=== PATIENT | male | born 1950 | race Caucasian/White ===

== ENCOUNTER 2025-04-23 07:19 | Outpatient (CLI) | payer MEDICARE, BC, SELFPAY ==
--- OUTSIDE RECORDS SUMMARY | 2025-04-24 16:05 | XMS_ITS | Clinical Summary ---
Author Organization [facility] [employer] [facility] Address [address] [place] [id number] Care Team Providers Care Clarifying Plant Operator Name Role Phone Keerthi Conley MD Primary [...] (11/02/2023): Added automatically from request for surgery [id number] Insomnia 01/18/2016 Dilated cardiomyopathy 12/14/2015 Nonrheumatic tricuspid (valve) insufficiency 07/2016 Obsessive compulsive disorder 12/15/2014 Esophageal motility disorder 10/03/2014 Shoulder tendinosis 07/22/2014 [facility] (current) use of anticoagulants 2013 Personal history [...] IIV3 (Age 65+ Years) Preserv Free 09/26/2017 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,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 Pneumococcal Poly,23-Valent (Pneumovax) 12/29/2014,09/03/1986 Pneumococcal [...] on file Legal Sex Male 6:41 AM DRY CAN TENDER Gender Identity Not on file Sexual Orientation Not on file Occupation Industry Job Start Date Job End Date [employer] Not on file Not on file Not on file Obstetrics History Last Filed Vital Signs Vital Sign Reading Time Taken Comments Blood Pressure 137/86 11/03/2023 7:35 AM DRY CAN TENDER Pulse 71 11/03/2023 7:35 AM DRY CAN TENDER Temperature 36.5 C (97.7 F) 11/03/2023 7:35 AM DRY CAN TENDER Respiratory Rate 18 11/03/2023 7:35 AM DRY CAN TENDER Oxygen Saturation 99% 11/03/2023 7:35 AM DRY CAN TENDER Inhaled Oxygen Concentration - - Weight 83.5 kg (184 lb 1.6 oz) 11/02/2023 6:00 A M DRY CAN TENDER Height 167.6 cm (5' 6) 11/01/2023 8:41 AM DRY CAN TENDER Body Mass Index 29.71 11/01/2023 8:41 AM DRY CAN TENDER Plan of Treatment Health Maintenance Due Date [...] 07/28/2014, 09/03/1986 Medical Devices Implanted Type Area Test Inspection Engineer Device Identifier Shelf Expiration Date Model / Serial / Lot [id number] - [id number] Implanted:Qty: 1 on 12/20/2016 by Arnulfo Betts Jr., MD at [facility] Opthalmology Implants Left: Eye [employer] 08/09/2021 [id number] / [id number] / Description:TECNIS SYMPHONY EXTENDED RANGE OF VISION IOL Symfony Iol Implanted:Qty: 1 on 12/27/2016 by Arnulfo Betts Jr., MD at [facility] Right: Eye [employer] 08/09/2021 [id number] / [id number] / Baseplate Tib Univ Sz 6 Triathlon Keeled Ingrowth Pors Tritan - [id number] Implanted:Qty: 1 on 11/01/2023 by Israel Moore MD at [facility] Left: Knee [employer] 06/17/2028 5536-B-6 00 / / [id number] Insert Tib Sz 6 9mm Knee X3 Condylar Stabilizing Triathlon - [id number] Implanted:Qty: 1 on 11/01/2023 by Israel Moore MD at [facility] Left: Knee [employer] 06/11/2028 5531-G-6 09-E / / [id number] Fem Lt 6 Triathlon Beaded W/Pa - [id number] Implanted:Qty: 1 on 11/01/2023 by Israel Moore MD at [facility] Left: Knee [employer] 12/27/2027 5517-F-6 01 / / [id number] Patella [id number] Triathlon Tritanium Symmetrical Metal Backed - [id number] Implanted:Qty: 1 on 11/01/2023 by Israel Moore MD at [facility] Left: Knee [employer] 05/02/2028 5556-L-3 60 / / [id number] Explanted Type Area Test Inspection Engineer Device Identifier Shelf Expiration Date Model / Serial / Lot Pin Bone Fix [id number] Strl - [id number] Explanted:Qty: 1 on 11/01/2023 by Israel Moore MD at [facility] Left: Knee [employer] 05/26/2025 [id number] / / [id number] Pin Bone Fix [id number] - [id number] Explanted:Qty: 1 on 11/01/2023 by Israel Moore MD at [facility] Left: Knee [employer] 07/20/2028 [id number] / / [id number] Additional Health Concerns Infection Onset Date Last Indicated MRSA Clearance Comment:If >12 months since positive culture, precautions can be discontinued if patient has no MRSA risk factors. 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 exclusions for contact precaution discontinuation (if > 12 months since positive culture): resides in acute/long-term care, receiving hemodialysis, has chronic open wounds/skin damage, has long-term percutaneous indwelling medical devices Exclusions for nares collection (if <12 months since positive culture) include all of the previous exclusions plus patients on antibiotics 7 days prior to collection 05/23/2019 05/23/2019 Insurance MEDICARE PB ONLY MEDICARE PART B HB ONLY MEDICARE PART A HB ONLY [facility] Advance Directives Documents on File Type Date Recorded Patient Associate Product Integrity Engineer Expl anation Healthcare Directive 03/21/2024 024 Healthcare [...] 9:07 AM 12/20/2016 2:10 PM Care Teams Clarifying Plant Operator Relationship Specialty Start Date End Date Keerthi Conley MD [address] [place] [address] PCP - General Internal Medicine 04/29/19
--- OUTSIDE RECORDS SUMMARY | 2025-04-24 16:05 | XMS_ITS | Clinical Summary ---
Author Organization [facility] Address [address] [place] [address] Care Team Providers Care Cashier Tube Room Name Role Phone Needs Pcp, Assignment Primary Care Provider Source Comments You are receiving this document as you are listed as the primary care provider,follow-up provider, or the patient has been referred to you for consultation.This is in compliance with the Medicare and[facility] Incentive Program,which states Providers who transition their patient to another setting of careor provider of care or refers their patient to another provider of care shouldprovide summary care record for each transition of care or referral. [facility] Allergies No known active allergies Medications aspirin [...] age to complete this topic Insurance MEDICARE [facility] MEDICARE SUPPLEMENT Care Teams Cashier Tube Room Relationship Specialty Start Date End [place] [address] PCP - General 01/31/19
== END 2025-04-23 07:20 | disposition home or self-care (01) ==
PROVIDERS: Visit Provider Family Medicine
DX: K92.1 Melena (principal); R42 Dizziness and giddiness
CPT/HCPCS: A0425; A0427

== ENCOUNTER 2025-04-23 08:05 | Inpatient (IN) | payer MEDICARE, BC, SELFPAY ==
[2025-04-23] VITALS (41 sets, daily range): BP systolic 63–150; BP diastolic 34–91; PULSE 85–232; RESP 10–20; TEMP 36.6–37.2; O2SAT 87–100; BMI 23.0
--- OUTSIDE RECORDS SUMMARY | 2025-04-23 08:07 | XMS_ITS | Clinical Summary ---
Author Organization [facility] Address [address] [place] [id number] Care Team Providers Care Putty Tinter Maker Name Role Phone Keerthi Conley MD Primary Care Provide r Allergies No known active allergies Medications ezetimibe (ZETIA) 10 mg tabletIndications:hyper lipidemia Take 10 mg by mouth at bedtime. Indications: excessive fat in the blood 0 08/07/20 13 Active aspirin 81 mg tabletIndications:myoca rdial infarction prevention Take 81 mg by mouth once daily with a meal. Indications: treatment to prevent a heart attack 0 08/07/20 13 Active amoxicillin (AMOXIL) 500 mg tabletIndications:prior to dental procedures Take 2,000 mg by mouth. Indications: prior to dental procedures Active doxepin 100 mg capsuleIndications:anxi ety Take 100 mg by mouth at bedtime. Active losartan (COZAAR) 100 mg tablet Take 100 mg by mouth once daily. 07/15/20 20 Active clonazePAM (KLONOPIN) 1 mg tablet Take 1 mg by mouth at bedtime. Active chlorthalidone (HYGROTON) 25 mg tablet Take 1 Tablet by mouth once daily. 06/07/20 22 Active sertraline (ZOLOFT) 100 mg tablet Take 100 mg by mouth once daily. 12/21/19 23 Active pregabalin (LYRICA) 225 mg capsule Take 225 mg by mouth. 05/28/20 23 Active ondansetron (ZOFRAN ODT) 4 mg disintegrating tabletIndications:Prima ry osteoarthritis of left knee Place 1 Tablet (4 mg) on the tongue every 8 hours if needed for Nausea/Vomiti ng. 20 Tablet 11/02/20 Active sennosides-docusate (SENOKOT S) (8.6-50 mg) tabletIndications:Prima ry osteoarthritis of left knee Take 1-3 Tablets by mouth two times daily. 60 Tablet 11/02/20 Active WalkerIndications:Prima ry osteoarthritis of left knee Walker with front wheels for home use. 1 Each 11/02/20 Active warfarin (Coumadin) 5 mg tabletIndications:Prese nce of prosthetic heart valve Take 1 Tablet (5 mg) by mouth once daily. Sunday 2.5mg, 5mg rest of week 11/03/20 Active levothyroxine (SYNTHROID) 150 mcg tabletIndications:hypot hyroidism Take 1 Tablet (150 mcg) by mouth before breakfast. 11/03/20 Active rosuvastatin (CRESTOR) 10 mg tabletIndications:Famil ial hypercholesterolemia Take 1 Tablet (10 mg) by mouth at bedtime. Take Sunday, Sunday, Sunday. 11/03/20 Active metoprolol tartrate (LOPRESSOR) 25 mg tabletIndications:Hyper tension Take 1 Tablet (25 mg) by mouth two times daily. 11/03/20 Active Active Problems Problem Noted Date Diagnosed Date Hypotension due to drugs 11/02/2023 Primary osteoarthritis of left knee 10/31/2023 Fibromyalgia 02/27/2022 Dilated aortic root 02/03/2021 Atherosclerosis of coronary artery bypass graft(s) without angina pectoris 09/26/2019 After-cataract of left eye with vision obscured 06/03/2019 Personal history of surgery to heart and great vessels, presenting hazards to health 05/20/2019 Essential tremor 03/13/2019 Nevus of choroid 05/07/2018 Moderate episode of recurrent major depressive d isorder 04/25/2018 Overactive bladder 04/21/2018 Mild cognitive impairment 10/26/2017 Lumbar radiculopathy 10/25/2017 Cataract, right eye 12/26/2016 Cataract, left eye 12/19/2016 Tinnitus 04/27/2016 Sinusitis, chronic 03/28/2016 Overview (11/02/2023): Added automatically from request for surgery [id number] Insomnia 01/18/2016 Dilated cardiomyopathy 12/14/2015 Nonrheumatic tricuspid (valve) insufficiency 07/2016 Obsessive compulsive disorder 12/15/2014 Esophageal motility disorder 10/03/2014 Shoulder tendinosis 07/22/2014 senior care (current) use of anticoagulants 2013 Personal history of other malignant neoplasm of skin 10/22/2013 Left hamstring tendonitis at origin 09/18/2013 DDD (degenerative disc disease), lumbar 09/04/20 13 Iliopsoas bursitis 09/04/2013 Acquired absence of other genital organ(s) 05/02 Gastroesophageal reflux disease without esophagi tis 12/29/2009 Familial hypercholesterolemia 07/21/2009 Hypertensive heart disease with heart failure Hypothyroidism 04/14/2009 Excessive attrition of teeth, generalized 2007 High prostate specific antigen (PSA) 04/03/2007 Osteoarthritis of shoulder 01/29/2007 Erectile dysfunction 10/25/2005 Incomplete bladder emptying 10/25/2005 Deviated nasal septum 08/30/2005 Coronary artery disease without angina pectoris 02/17/2004 Presence of prosthetic heart valve 02/17/2004 Immunizations Immunization Administration Dates Next Due Amb Influenza, Inact (High-d ose) (Flu Clinic Only) 08/03/2014 Hepatitis A (Adult) 07/28/2014,03/12/2006,1998 Hepatitis B, Unspecified 07/15/1987,042 02/1987,01/29/1987,1985,11/05/1979 Influenza Virus, Unspecified 09/22/2015, 08/19/2014,08/21/2013,2010,08/05/2010 Influenza, IIV3 (Age >=3 years) 08/19/2012,08/23 Influenza, Inactivated IIV3 (Age 65+ Years) Preserv Free 09/26/2017 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 4 11/02/2023 Financial Resource Strain Answer Date R ecorded Difficulty of Paying Living Expenses 3 11/02/2023 Difficulty of Paying Living Expenses Not on file 11/02/2023 Food Insecurity Answer Date Recorded Do you worry your food will run out before you are able to buy more? 1 11/02/2023 Transportation Needs Answer Date Record ed Does lack of transportation keep you from medica l appointments? 1 11/02/2023 Does lack of transportation keep you from work, meetings or getting things that you need? 1 11/02/2023 Housing Stability Answer Date Recorded What is your housing situation today? 1 11/02/2023 Interpersonal Safety Answer Date Record ed Are you being hit, kicked, p ushed or yelled at (see row info)? No 11/02/2023 Interpersonal Safety Abuse 12 - 18 Not on file 11/02/2023 Interpersonal Safety Ambulatory Vulnerability No t on file 11/02/2023 Utilities Answer Date Recorded Do you have trouble paying f or utilities (for example, heat, electricity, water, phone)? 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 file Not on file Not on file Obstetrics History Last Filed Vital Signs Vital Sign Reading Time Taken Comments Blood Pressure 137/86 11/03/2023 7:35 AM HOOP RIVETER Pulse 71 11/03/2023 7:35 AM HOOP RIVETER Temperature 36.5 C (97.7 F) 11/03/2023 7:35 AM HOOP RIVETER Respiratory Rate 18 11/03/2023 7:35 AM HOOP RIVETER Oxygen Saturation 99% 11/03/2023 7:35 AM HOOP RIVETER Inhaled Oxygen Concentration - - Weight 83.5 kg (184 lb 1.6 oz) 11/02/2023 6:00 A M HOOP RIVETER Height 167.6 cm (5' 6) 11/01/2023 8:41 AM HOOP RIVETER Body Mass Index 29.71 11/01/2023 8:41 AM HOOP RIVETER Plan of Treatment Health Maintenance Due Date Last Done Comments Hepatitis C screening for ag e 18-79 1966 Zoster (shingles) series for age 50+ (2 of 3) 05/14/2007 03/19/2007 Medicare Wellness for age 65+ 2013 Depression screening for age 12+ 12/08/2016 12/08/19 16 BMI (ht and wt on same day) for age 18+ 10/24/2017 10/24/2016, 06/06/2016, 02/03/2016 RSV vaccine for adults or (1 - 1-dose 75+ series) 2023 COVID-19 vaccine series ( season) 2024 07/22/2022, 01/31/2022, 07/22/2021, Additional history exists Tetanus booster 07/28/2024 07/28/2014, 01/04, 03/01/2005 Influenza Vaccine (Season Ended) 2025 09/26/2017, 09/22/2015, 08/19/2014, Additional history exists Hepatitis B series for 19+ Completed 07/15, 02/26/1987, 01/29/1987, Additional history exists Tdap Completed 07/28/2014, 01/23/2011 Pneumococcal series for age 50+ Completed 12/29/2014, 07/28/2014, 09/03/1986 Medical Devices Implanted Type Area Plate Grainer Device Identifier Shelf Expiration Date Model / Serial / Lot [id number] - [id number] Implanted:Qty: 1 on 12/20/2016 by Arnulfo Betts Jr., MD at [facility] Opthalmology Implants Left: Eye [employer] 08/09/2021 [id number] / [id number] / Description:TECNIS SYMPHONY EXTENDED RANGE OF VISION IOL Symfony Iol Implanted:Qty: 1 on 12/27/2016 by Arnulfo Betts Jr., MD at [facility] Right: Eye [employer] 08/09/2021 [id number] / [id number] / Baseplate Tib Univ Sz 6 Triathlon Keeled Ingrowth Pors Tritan - [id number] Implanted:Qty: 1 on 11/01/2023 by Israel Moore MD at [facility] Left: Knee [employer] 06/17/2028 5536-B-6 00 / / [id number] Insert Tib Sz 6 9mm Knee X3 Condylar Stabilizing Triathlon - [id number] Implanted:Qty: 1 on 11/01/2023 by Israel Moore MD at [facility] Left: Knee [employer] 06/11/2028 5531-G-6 09-E / / [id number] Fem Lt 6 Triathlon Beaded W/Pa - [id number] Implanted:Qty: 1 on 11/01/2023 by Israel Moore MD at [facility] Left: Knee [employer] 12/27/2027 5517-F-6 01 / / [id number] Patella [id number] Triathlon Tritanium Symmetrical Metal Backed - [id number] Implanted:Qty: 1 on 11/01/2023 by Israel Moore MD at [facility] Left: Knee [employer] 05/02/2028 5556-L-3 60 / / [id number] Explanted Type Area Plate Grainer Device Identifier Shelf Expiration Date Model / Serial / Lot Pin Bone Fix [id number] Strl - [id number] Explanted:Qty: 1 on 11/01/2023 by Israel Moore MD at [facility] Left: Knee [employer] 05/26/2025 [id number] / / [id number] Pin Bone Fix [id number] - [id number] Explanted:Qty: 1 on 11/01/2023 by Israel Moore MD at [facility] Left: Knee [employer] 07/20/2028 [id number] / / [id number] Additional Health Concerns Infection Onset Date Last Indicated MRSA Clearance Comment:If >12 months since positive culture, precautions can be discontinued if patient has no MRSA risk factors. 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 exclusions for contact precaution discontinuation (if > 12 months since positive culture): resides in acute/detention care, receiving hemodialysis, has chronic open wounds/skin damage, has long-term percutaneous indwelling medical devices Exclusions for nares collection (if <12 months since positive culture) include all of the previous exclusions plus patients on antibiotics 7 days prior to collection 05/23/2019 05/23/2019 Insurance MEDICARE PB ONLY MEDICARE PART B HB ONLY MEDICARE PART A HB ONLY [facility] Advance Directives Documents on File Type Date Recorded Patient Receiving Room Clerk Expl anation Healthcare Directive 03/21/2024 024 Healthcare Directive 03/21/2024 024 Healthcare Directive 03/03/2021 12:00 AM Healthcare Directive 12/22/2016 5:54 PM Ex pired 03/03/2021 * Full Code (Latest Code Status on File) Date Activated Date Inactivated Comments 11/01/2023 8:19 AM 11/03/2023 4:31 PM Question Answer Comments Code Status Discussion: Not Discussed * Full Code Date Activated Date Inactivated Comments 03/03/2021 8:38 AM 03/03/2021 4:12 PM Question Answer Comments Code Status Discussion: Per Existing Order * Full Code Date Activated Date Inactivated Comments 05/01/2019 11:23 AM 05/01/2019 5:42 PM * Full Code Date Activated Date Inactivated Comments 12/27/2016 7:32 AM 12/27/2016 1:59 PM * Full Code Date Activated Date Inactivated Comments 12/20/2016 9:07 AM 12/20/2016 2:10 PM Care Teams Putty Tinter Maker Relationship Specialty Start Date End Date Keerthi Conley MD [address] [place] [address] PCP - General Internal Medicine 04/29/19
--- OUTSIDE RECORDS SUMMARY | 2025-04-23 08:07 | XMS_ITS | Clinical Summary ---
Author Organization [facility] Address [address] [place] [address] Care Team Providers Care Breakfast Manager Name Role Phone Needs Pcp, Assignment Primary Care Provider Source Comments You are receiving this document as you are listed as the primary care provider,follow-up provider, or the patient has been referred to you for consultation.This is in compliance with the Medicare and[facility] EHR Incentive Program,which states Providers who transition their patient to another setting of careor provider of care or refers their patient to another provider of care shouldprovide summary care record for each transition of care or referral. [employer] Allergies No known active allergies Medications aspirin 81 MG tablet Take 81 mg by mouth daily. Active doxepin (SINEQUAN) 100 MG capsule Take 100 mg by mouth every evening. Active atorvastatin (LIPITOR) 80 MG tablet Take 80 mg by mouth daily. Active ezetimibe (ZETIA) 10 MG tablet Take 10 mg by mouth daily. Active warfarin (COUMADIN) 5 MG tablet Take 5 mg by mouth daily. Active propranolol (INDERAL) 40 MG tablet Take 40 mg by mouth three times a day. Active losartan (COZAAR) 25 MG tablet Take 25 mg by mouth daily. Active lamoTRIgine (LAMICTAL) 100 MG tablet Take 100 mg by mouth daily. Active Social History Tobacco Use Types Packs/Day Years Used Date Smoking Tobacco: Never Assessed Sex and Gender Information Value Date Recorded Sex Assigned at Not on file Legal Sex Male 4:29 AM CDT Gender Identity Not on file Sexual Orientation Not on file Last Filed Vital Signs Vital Sign Reading Time Taken Comments Blood Pressure - - Pulse - - Temperature - - Respiratory Rate - - Oxygen Saturation - - Inhaled Oxygen Concentration - - Weight 68 kg (150 lb) 01/31/2019 8:28 AM CDT Height 167.6 cm (5' 6) 01/31/2019 8:28 AM CDT Body Mass Index 24.21 01/31/2019 8:28 AM CDT Plan of Treatment Health Maintenance Due Date Last Done Comments Hep C Screening (Preventive Services) 1950 Medicare Annual Wellness Visit 1950 RSV Vaccine (1 - 1-dose 75+ series) 2023 COVID-19 Vaccine ( - 2023- season) 2024 01/17/2021, 12/20/2020 DTaP/Tdap/Td Vaccine (3 - Tdap) 07/28/2024 07/28/2014, 01/23/2011, 03/01/2005 Influenza Vaccine (Season Ended) 2025 08/08/2019, 08/16/2018, 10/06/2017, Additional history exists HepA Vaccine Aged Out 07/28/2014, 01/04, 03/12/2006, Additional history exists No longer eligible based on patient's age to complete this topic Pneumococcal Vaccine 50+ Yrs Completed , 07/28/2014, 09/03/1986 Zoster/Shingles Vaccine Completed 10/04/20 18, 05/17/2018, 03/15/2018, Additional history exists HepB Vaccine Aged Out No longer eligi ble based on patient's age to complete this topic Hib Vaccine Aged Out No longer eligi ble based on patient's age to complete this topic IPV (Polio) Vaccine Aged Out No longe r eligible based on patient's age to complete this topic MCV4 Vaccine Aged Out No longer eligi ble based on patient's age to complete this topic Meningococcal B Vaccine Aged Out No l onger eligible based on patient's age to complete this topic Insurance MEDICARE [facility] [place] [address] Care Teams Breakfast Manager Relationship Specialty Start Date [place] [address] PCP - General 01/31/19
--- NOTE | 2025-04-23 08:51 | ED.GENADULT ---
HPI - General Adult General Chief complaint: GI Bleed Stated complaint: GI bleeding Time Seen by Provider: 04/23/25 08:29 Source: patient and family Mode of arrival: ambulatory Limitations: no limitations History of Present Illness HPI narrative: 74-year-old male presenting today concerned about GI bleed. Patient states that he was golfing yesterday and felt very dizzy on the golf course. He finished the course and then went home became more week. He states that he had delay on the ground at some point at night. He then had diarrhea shortly before bed it was dark tarry stools. He had multiple episodes of diarrhea throughout the night and today morning which eventually turned into bright red blood. He feels lightheaded. He denies chest pain or shortness of breath. He denies any abdominal pain. Past medical history is significant for mechanical aortic valve replacement and mitral valve pericardial patch repair, coronary artery disease status post CABG, long-term anticoagulation with Coumadin, hyperlipidemia, hypertension, right bundle branch block, history of CVA following surgery in 2001, obstructive sleep apnea, hypothyroidism, essential tremor, depression, probable parkinsons disease- currently being worked up for cognitive decline. Blood pressure medications for help this morning. Patient is currently not taking sertraline or Abilify as part of his neurological evaluation. Related Data Home Medications ?Medication ?Instructions ?Recorded ?Confirmed aripiprazole 10 mg tablet 10 mg PO DAILY 04/23/25 04/23/25 Held on 04/23/25. Instructions: due to upcoming scan aspirin 81 mg tablet,delayed 81 mg PO DAILY 04/23/25 04/23/25 release (Adult Aspirin Regimen) chlorthalidone 25 mg tablet 25 mg PO DAILY 04/23/25 04/23/25 clonazepam 1 mg tablet 1 mg PO HS 04/23/25 04/23/25 doxepin 75 mg capsule 75 mg PO HS 04/23/25 04/23/25 evolocumab 140 mg/mL subcutaneous 140 mg subcut Q2W 04/23/25 04/23/25 pen injector (Jake Freeman) ezetimibe 10 mg tablet 10 mg PO HS 04/23/25 04/23/25 levothyroxine 150 mcg tablet 150 mcg PO DAILY 04/23/25 04/23/25 losartan 100 mg tablet 100 mg PO DAILY 04/23/25 04/23/25 metoprolol tartrate 25 mg tablet 25 mg PO BID 04/23/25 04/23/25 pregabalin 225 mg capsule 225 mg PO BID 04/23/25 04/23/25 sertraline 100 mg tablet 200 mg PO DAILY 04/23/25 04/23/25 Held on 04/23/25. Instructions: due to upcoming scan warfarin 5 mg tablet 5 mg PO DAILY 04/23/25 04/23/25 Review of Systems Status of ROS: Reports: 10 or more systems reviewed and unremarkable except as noted in History and below PFSH PFS Social History Smoking Status: Never smoker Do you use any of these nicotine containing products: None Second hand tobacco smoke exposure: No Non-prescribed substance use: denies use Exam Narrative: Exam Narrative: Well-nourished well-developed patient in no acute distress. Alert and oriented x3. Answers questions appropriately but very slowly, often trails off at the end of the answer and does not finish the sentence. Thoughts are goal oriented and rational. Patient speaks in full sentences without needing to catch his breath. HEENT: Normocephalic atraumatic. Pupils are equally round reactive to light. Extraocular muscles are intact. Conjunctivae are moist without any icterus noted, pale. Moist mucous membranes. Cardiovascular: Heart is regular rate and rhythm S1 and S2 are present without any murmurs. Lungs: Clear to auscultation bilaterally no wheezes rhonchi or rales are appreciated. Abdomen: Soft and nontender nondistended with normal bowel sounds. Extremities: Bilateral lower extremities are without edema. Skin: Well perfused without any obvious rashes. Pale. Const: Vital Signs, click to edit/add: Vital Signs - 24 hr 04/23/25 08:14 04/23/25 08:40 04/23/25 09:40 Temperature 97.8 F Pulse Rate 107 H Pulse Rate [Pulse Oximeter] 99 Respiratory Rate 18 12 Blood Pressure Blood Pressure [Ri ght Upper Arm] 150/82 H Pulse Oximetry 99 96 100 Oxygen Delivery Me thod Room Air Room Air 04/23/25 09:45 04/23/25 09:46 04/23/25 09:47 Temperature Pulse Rate 106 H 103 H 104 H Pulse Rate [Pulse Oximeter] Respiratory Rate 15 11 L 18 Blood Pressure 122/86 Blood Pressure [Ri ght Upper Arm] Pulse Oximetry 98 99 99 Oxygen Delivery Me thod 04/23/25 10:00 04/23/25 10:01 04/23/25 10:15 Temperature Pulse Rate 105 H 104 H 121 H Pulse Rate [Pulse Oximeter] Respiratory Rate 13 16 19 Blood Pressure 113/87 Blood Pressure [Ri ght Upper Arm] Pulse Oximetry 97 99 96 Oxygen Delivery Me thod Room Air 04/23/25 10:16 04/23/25 10:30 04/23/25 10:31 Temperature Pulse Rate 111 H 110 H 110 H Pulse Rate [Pulse Oximeter] Respiratory Rate 16 18 10 L Blood Pressure 116/85 114/84 Blood Pressure [Ri ght Upper Arm] Pulse Oximetry 95 99 99 Oxygen Delivery Me thod 04/23/25 10:45 04/23/25 10:46 04/23/25 11:00 Temperature Pulse Rate 113 H 114 H 115 H Pulse Rate [Pulse Oximeter] Respiratory Rate 14 13 15 Blood Pressure 108/80 Blood Pressure [Ri ght Upper Arm] Pulse Oximetry 98 98 99 Oxygen Delivery Me thod Room Air 04/23/25 11:01 04/23/25 11:01 04/23/25 11:07 Temperature 97.9 F Pulse Rate 114 H 114 H 114 H Pulse Rate [Pulse Oximeter] Respiratory Rate 18 18 18 Blood Pressure 116/77 116/77 109/79 Blood Pressure [Ri ght Upper Arm] Pulse Oximetry 98 98 98 Oxygen Delivery Me thod Room Air 04/23/25 11:11 04/23/25 11:15 04/23/25 11:16 Temperature Pulse Rate 115 H 114 H 116 H Pulse Rate [Pulse Oximeter] Respiratory Rate 12 20 19 Blood Pressure 109/79 106/84 Blood Pressure [Ri ght Upper Arm] Pulse Oximetry 98 98 98 Oxygen Delivery Me thod 04/23/25 11:23 04/23/25 11:23 Temperature 98 F Pulse Rate 117 H 117 H Pulse Rate [Pulse Oximeter] Respiratory Rate 16 18 Blood Pressure 118/78 118/78 Blood Pressure [Ri ght Upper Arm] Pulse Oximetry 98 98 Oxygen Delivery Me thod Room Air Course Course ED Course: IV established and fluids are started. Patient did receive TXA in the ambulance. EKG, read by me, shows sinus tachycardia with a pulse of 105, right bundle branch block and a left anterior fascicular block. CBC shows a hemoglobin of 7.9. Looking through his medical records last hemoglobin on file at [facility] was in January of this year and it was 14. INR is 2.79. Chemistries are unremarkable aside from elevated BUN at 62 consistent with GI bleed. Lactate is 2.5. LFTs are normal. Troponin elevated 0.09. Type and screen ordered along with 2 units of red cells. Discussed patient with Dr. Steen, recommends admission, stabilization and re-evaluation for scope in the morning. Spoke to Neeta Pino who will accept the patient for admission at this time. She recommends holding the vitamin K at this time. Vital Signs Vital signs: Initial Vital Signs Temperature 97.8 F 04/23/25 08:14 Temperature Source Temporal Artery Scan 04/23/25 08:14 Pulse Rate 99 04/23/25 08:14 Respiratory Rate 18 04/23/25 08:14 Blood Pressure 150/82 H 04/23/25 08:14 Blood Pressure Mean 104 04/23/25 08:14 Pulse Oximetry 99 04/23/25 08:14 Oxygen Delivery Method Room Air 04/23/25 08:14 Vital Signs Temperature 97.8 F 04/23/25 08:14 Pulse Rate 99 04/23/25 08:14 Respiratory Rate 18 04/23/25 08:14 Blood Pressure 150/82 H 04/23/25 08:14 Pulse Oximetry 99 04/23/25 08:14 Oxygen Delivery Method Room Air 04/23/25 08:14 Temperature 98 F 04/23/25 11:23 Pulse Rate 117 H 04/23/25 11:23 Respiratory Rate 18 04/23/25 11:23 Blood Pressure 118/78 04/23/25 11:23 Pulse Oximetry 98 04/23/25 11:23 Oxygen Delivery Method Room Air 04/23/25 11:23 Medications Administered Medications: Generic Name Dose Route Start Last Admin Trade Name Freq PRN Reason Stop Dose Admin Sodium Chloride 250 ml 04/23/25 09:09 04/23/25 11:22 0.9 % Sodium Chloride 500 Ml IV 04/24/25 23:59 250 ml ONCE PRN Administration Discontinued Medications Generic Name Dose Route Start Last Admin Trade Name Freq PRN Reason Stop Dose Admin Sodium Chloride 1,000 mls @ 1,000 mls/hr 04/23/25 08:45 04/23/25 09:04 0.9 % Sodium Chloride 1000 Ml IV 04/23/25 09:44 1,000 mls/hr .Q1H RUBY Administration Medical Decision Making MDM Narrative Medical decision making narrative: 74-year-old male acute GI bleed. Patient will be admitted for further management. Lab Data Lab results reviewed: Yes I reviewed the patient's lab results Labs: Lab Results 04/23/25 04/23/25 Range/Units 08:30 08:41 WBC 11.11 H (4.50-11.00) K/uL RBC 2.54 L (4.30-5.90) m/uL Hgb 7.9 L* (13.5-17.5) gm/dL Hct 22.9 L (37.0-53.0) % MCV 90 (80-100) fL MCH 31 (26-34) pg MCHC 35 (32-36) gm/dL RDW Coeff of Cindy 15.4 (11.5-15.5) % Plt Count 251 (140-440) K/uL Neut % (Auto) 81.7 H (42.0-72.0) % Lymph % (Auto) 10.5 L (20-44) % [place] % (Auto) 6.7 (0.0-11.0) % Eos % (Auto) 0.1 (0.0-7.0) % Baso % (Auto) 0.3 (0.0-3.0) % Neut # (Auto) 9.10 H (1.7-7.0) K/uL Lymph # (Auto) 1.20 (0.90-2.90) K/uL [place] # (Auto) 0.70 (0.00-0.90) K/UL Eos # (Auto) 0.00 (0.00-0.50) K/uL Baso # (Auto) 0.00 (0.00-0.30) K/uL Abs Immat Gran (auto) 0.10 (0.00-0.30) K/uL Imm/Tot Granulo (auto) 0.7 % INR 2.79 H (0.91-1.10) Sodium 138 (135-149) mmol/L Potassium 3.8 (3.6-5.1) mmol/L Chloride 106 (96-114) mmol/L Carbon Dioxide 26 (20-32) mmol/L Anion Gap 6 L (7-15) mEq/L BUN 62 H (7-30) mg/dL Creatinine 0.9 (0.5-1.5) mg/dL Estimated Creat Clear 66.53 Estimated GFR 89 ml/min Glucose 139 H (60-115) mg/dL Lactate 2.5 H (0.5-1.9) mmol/L Calcium 8.9 (8.4-10.6) mg/dL Total Bilirubin 0.2 (0.1-1.5) mg/dL Direct Bilirubin 0.0 (0.0-0.5) mg/dL AST 29 (12-35) U/L ALT 21 (4-50) U/L Alkaline Phosphatase 71 (40-150) U/L Troponin I 0.09 H* (0.01-0.04) ng/mL Total Protein 5.4 L (6.0-8.3) g/dL Albumin 3.3 (3.3-5.0) g/dL Blood Type O Negative Antibody Screen NEGATIVE Crossmatch (AHG) See Detail ECG Data Attestation: I personally reviewed and interpreted this ECG as follows: Discharge Plan Discharge Clinical Impression: Bright red blood per rectum, GI (gastrointestinal bleed), Chronic anticoagulation Patient Disposition: Admitted As Observation Condition: Stable
[2025-04-23 08:56] LABS: Lactate* 2.5 mmol/L (0.5-1.9)
[2025-04-23 09:00] LABS: Basophils Percent Auto 0.3 % (0.0-3.0); Eosinophils Percent Auto 0.1 % (0.0-7.0); Hematocrit 22.9 % (37.0-53.0); Immature Granulocytes Pct Auto 0.7 %; Lymphocytes Percent Auto 10.5 % (20-44); Mean Corpuscular HGB Conc 35 gm/dL (32-36); Mean Corpuscular Hemoglobin 31 pg (26-34); Mean Corpuscular Volume 90 fL (80-100); Monocytes Percent Auto 6.7 % (0.0-11.0); Neutrophils Percent Auto 81.7 % (42.0-72.0); Platelet Count* 251 K/uL (140-440); RDW Coefficient of Variation % 15.4 % (11.5-15.5); Red Blood Count 2.54 m/uL (4.30-5.90); White Blood Count* 11.11 K/uL (4.50-11.00)
[2025-04-23] MEDS: 0.9 % SODIUM CHLORIDE 1000 ml 1,000 ML IV (09:04)
[2025-04-23 09:08] LABS: Hemoglobin* 7.9 gm/dL (13.5-17.5)
[2025-04-23 09:12] LABS: Albumin* 3.3 g/dL (3.3-5.0); Chloride* 106 mmol/L (96-114); Potassium* 3.8 mmol/L (3.6-5.1); Sodium* 138 mmol/L (135-149)
[2025-04-23 09:15] LABS: Alanine Aminotransferase* 21 U/L (4-50); Alkaline Phosphatase* 71 U/L (40-150); Anion Gap 6 mEq/L (7-15); Aspartate Amino Transferase* 29 U/L (12-35); Bilirubin Total* 0.2 mg/dL (0.1-1.5); Blood Urea Nitrogen* 62 mg/dL (7-30); Calcium* 8.9 mg/dL (8.4-10.6); Carbon Dioxide* 26 mmol/L (20-32); Creatinine* 0.9 mg/dL (0.5-1.5); Est. Creatinine Clearance* 66.53; Estimated Glomerular Filt Rate 89 ml/min; Glucose* 139 mg/dL (60-115); Total Protein* 5.4 g/dL (6.0-8.3)
[2025-04-23 09:16] LABS: INR 2.79 (0.91-1.10); Prothrombin Time 30.7 Seconds
[2025-04-23 09:32] LABS: Troponin I* 0.09 ng/mL (0.01-0.04)
[2025-04-23] MEDS: 0.9 % SODIUM CHLORIDE 500 ML 250 ML IV (11:22)
[2025-04-23 12:34] LABS: Slide Review Reflex No
[2025-04-23 13:20] LABS: Lactate Sepsis w/Reflex* 2.8 mmol/L (0.5-1.9)
[2025-04-23 13:25] LABS: Basophils Percent Auto 0.2 % (0.0-3.0); Eosinophils Percent Auto 0.1 % (0.0-7.0); Hemoglobin* 8.2 gm/dL (13.5-17.5); Immature Granulocytes Pct Auto 0.7 %; Lymphocytes Percent Auto 11.3 % (20-44); Mean Corpuscular HGB Conc 34 gm/dL (32-36); Mean Corpuscular Hemoglobin 31 pg (26-34); Mean Corpuscular Volume 89 fL (80-100); Monocytes Percent Auto 7.3 % (0.0-11.0); Neutrophils Percent Auto 80.4 % (42.0-72.0); Platelet Count* 233 K/uL (140-440); RDW Coefficient of Variation % 15.1 % (11.5-15.5); Red Blood Count 2.69 m/uL (4.30-5.90); Slide Review Reflex No; White Blood Count* 11.48 K/uL (4.50-11.00)
[2025-04-23 13:44] LABS: INR 2.64 (0.91-1.10); Prothrombin Time 29.4 Seconds
[2025-04-23 14:14] LABS: Alanine Aminotransferase* 21 U/L (4-50); Albumin* 3.2 g/dL (3.3-5.0); Anion Gap 4 mEq/L (7-15); Aspartate Amino Transferase* 30 U/L (12-35); Bilirubin Total* 0.3 mg/dL (0.1-1.5); Blood Urea Nitrogen* 59 mg/dL (7-30); Calcium* 8.7 mg/dL (8.4-10.6); Carbon Dioxide* 26 mmol/L (20-32); Chloride* 108 mmol/L (96-114); Creatinine* 0.9 mg/dL (0.5-1.5); Est. Creatinine Clearance* 66.53; Estimated Glomerular Filt Rate 89 ml/min; Glucose* 141 mg/dL (60-115); Potassium* 4.3 mmol/L (3.6-5.1); Sodium* 138 mmol/L (135-149); Total Protein* 5.3 g/dL (6.0-8.3)
[2025-04-23 14:15] LABS: Alkaline Phosphatase* 67 U/L (40-150)
[2025-04-23 14:16] LABS: Troponin I* 0.12 ng/mL (0.01-0.04)
--- NOTE | 2025-04-23 14:21 | PM.IMHP1 ---
Assessment and Plan Assessment and plan (1) Wide-complex tachycardia: Problem comment: 7 minute run of wide complex tachycardia Symptomatic - diaphoretic, generalized weakness. Without complaint of chest pain, tightness, dyspnea Resolved without intervention, spontaneously returning to sinus tachycardia, EKG similar to previous. Symptoms resolved Repeat lab stable. Lactate mildly elevated Plan to transfer- [facility] has been contacted, [facility] to review, awaiting acceptance Status: Acute (2) GI (gastrointestinal bleed): Problem comment: 8 bloody stools since 6:30 p.m. 04/22 Bright red blood On anticoagulation - holding Hemoglobin 7.9 ->8.2 Receiving 2 units packed red blood cells. Repeat hemoglobin after 2nd unit. Reports previous blood transfusions without adverse reactions ED provider discussed with General surgery, initial plan was for reassessment for scope tomorrow. Given code event requiring CCU level care, patient will be transferred. Defer to outside facility Status: Acute (3) Chronic anticoagulation: Problem comment: Prosthetic valve INR 2.64 Holding Coumadin Status: Acute (4) H/O prosthetic heart valve: Problem comment: 2003 Chronic anticoagulation - holding Status: Acute (5) Hypertension: Problem comment: Patient held his metoprolol and losartan last night and this morning Hold home meds Status: Acute (6) Hypotension: Problem comment: SBP < 65 during wide complex tachycardia. Normalized in sinus tachycardia Continue IVF Hold home meds Status: Acute (7) Elevated troponin: Problem comment: Troponin 0.09 -> 0.12 following episode of wide complex tachycardia, EKG unchanged, suspected to be ischemic [facility] to review Status: Acute Plan Acute GI bleed. Episode of wide complex tachycardia, converted to sinus tachycardia without intervention. Awaiting transfer for ICU level care. Stable Acuity is characterized as high and reflected in: White complex tachycardia, symptomatic, acute GI bleed with acute blood loss anemia This patient will require hospital services as outlined in the assessment and plan in order to stabilize and be safely discharged to a lower level of care. Because of the risk and acuity as described above, this patient cannot be managed at a lower level of care. Total Time Spent Total Time Spent: Today I spent 120 minutes seeing the patient, reviewing Expanse and EPIC notes/diagnostics, discussing the care plan with our care time that includes social work, PT/OT, pharmacy, RT, intermediate and documenting my impressions and plan in the medical record. Hospitalist- H&P: [facility] History of Present Illness Date Seen: 04/23/25 Chief complaint: GI bleeding Narrative: Gallo Ambrocio is a 74 year old male past medical history significant for hypertension, heart failure, CAD, dilated aortic root, dilated cardiomyopathy, hypothyroidism, GERD, tremor, MDD, cognitive impairment is admitted to the medical floor from the ED with active GI bleed. Shortly after arrival to the floor, patient is noted to have a heart rate >230. SBP 63. Symptomatic with generalized weakness, diaphoresis. Denied chest pain, pressure, or shortness of breath. Is not feeling nauseous. Has not vomited. Heart rate noted >230. On monitor, appears to be wide complex V-tach. Currently receiving 1 unit PRBC. Afebrile. Crash cart at bedside. Plan for adenosine. While preparing, patient converts back to sinus tach, just over 100. Acute symptoms began to resolve. reports he has had episodes of similar tachycardia in the past postoperatively. and son are at bedside. Reports onset of dizziness yesterday afternoon while golfing. Assumed he was dehydrated. At approximately 1830 last night had his 1st bloody stool. Has had a total of 8 bloody stool since that time. Initially dark and tarry, now bright red. Denies significant abdominal pain or cramping. Has not been nauseous or vomiting. Denies hematemesis or hematuria. ED provider had discussed with General surgery. Plan was to bring to floor, stabilize, and re-evaluate in the morning for scope. Given event of 7 minute run of wide complex tachycardia, patient is admitted to CCU, initiation for transfer has been started. Primary care is [facility]. Review of Systems Narrative: REVIEW OF SYSTEMS: Complete review of systems performed and negative unless otherwise stated in HPI or below. Medical Decision Making Medical Decision Making Code Status: Full code Has patient completed a Health Care Directive: Yes During This Stay, Who Would You Like To Make Decisions For You In The Event You Are Unable To Make Them For Yourself?: [facility] Medical History Hypertension ?I10 - Essential (primary) hypertension (ICD-10) Cognitive impairment ?R41.89 - Other symptoms and signs involving cognitive functions and awareness (ICD-10) Hypertensive heart disease with heart failure ?I11.0 - Hypertensive heart disease with heart failure (ICD-10) Dilated cardiomyopathy ?I42.0 - Dilated cardiomyopathy (ICD-10) Surgical History H/O prosthetic heart valve ?Z95.2 - Presence of prosthetic heart valve (ICD-10) Social History Smoking Status: Never smoker Do you use any of these nicotine containing products: None Second hand tobacco smoke exposure: No Non-prescribed substance use: denies use Meds Home Medications and Allergies Home Medications ?Medication ?Instructions ?Recorded ?Confirmed ?Type aripiprazole 10 mg tablet 10 mg PO DAILY 04/23/25 04/23/25 History Held on 04/23/25. Instructions: due to upcoming scan aspirin 81 mg tablet,delayed 81 mg PO DAILY 04/23/25 04/23/25 History release (Adult Aspirin Regimen) chlorthalidone 25 mg tablet 25 mg PO DAILY 04/23/25 04/23/25 History clonazepam 1 mg tablet 1 mg PO HS 04/23/25 04/23/25 History doxepin 75 mg capsule 75 mg PO HS 04/23/25 04/23/25 History evolocumab 140 mg/mL subcutaneous 140 mg subcut Q2W 04/23/25 04/23/25 History pen injector (Jake Freeman) ezetimibe 10 mg tablet 10 mg PO HS 04/23/25 04/23/25 History levothyroxine 150 mcg tablet 150 mcg PO DAILY 04/23/25 04/23/25 History losartan 100 mg tablet 100 mg PO DAILY 04/23/25 04/23/25 History metoprolol tartrate 25 mg tablet 25 mg PO BID 04/23/25 04/23/25 History pregabalin 225 mg capsule 225 mg PO BID 04/23/25 04/23/25 History sertraline 100 mg tablet 200 mg PO DAILY 04/23/25 04/23/25 History Held on 04/23/25. Instructions: due to upcoming scan warfarin 5 mg tablet 5 mg PO DAILY 04/23/25 04/23/25 History Allergies Allergy/AdvReac Type Severity Reaction Status Date / Time No Known Drug Allergies Allergy Verified 04/23/25 14:15 Exam Narrative: Exam Narrative: PHYSICAL EXAM General: Pale, diaphoretic HEENT: Normocephalic, atraumatic Cardiovascular: Tachycardic. No pitting edema Pulmonary: CTA bilaterally without rhonchi, rales, expiratory wheezes. No dyspnea on room air Abdominal: Soft, nondistended, NTTP Neurological: Alert, answering questions appropriately, cranial nerves intact, no focal findings Extremities: No gross joint deformity or swelling. AROMI. Neurovascularly intact Skin: Warm, dry. Const: Vital Signs, click to edit/add: Vital Signs - 24 hr 04/23/25 08:14 04/23/25 08:40 04/23/25 09:40 Temperature 97.8 F Pulse Rate 107 H Pulse Rate [Pulse Oximeter] 99 Respiratory Rate 18 12 Blood Pressure Blood Pressure [Ri ght Upper Arm] 150/82 H Pulse Oximetry 99 96 100 Oxygen Delivery Me thod Room Air Room Air Oxygen Flow Rate 04/23/25 09:45 04/23/25 09:46 04/23/25 09:47 Temperature Pulse Rate 106 H 103 H 104 H Pulse Rate [Pulse Oximeter] Respiratory Rate 15 11 L 18 Blood Pressure 122/86 Blood Pressure [Ri ght Upper Arm] Pulse Oximetry 98 99 99 Oxygen Delivery Me thod Oxygen Flow Rate 04/23/25 10:00 04/23/25 10:01 04/23/25 10:15 Temperature Pulse Rate 105 H 104 H 121 H Pulse Rate [Pulse Oximeter] Respiratory Rate 13 16 19 Blood Pressure 113/87 Blood Pressure [Ri ght Upper Arm] Pulse Oximetry 97 99 96 Oxygen Delivery Me thod Room Air Oxygen Flow Rate 04/23/25 10:16 04/23/25 10:30 04/23/25 10:31 Temperature Pulse Rate 111 H 110 H 110 H Pulse Rate [Pulse Oximeter] Respiratory Rate 16 18 10 L Blood Pressure 116/85 114/84 Blood Pressure [Ri ght Upper Arm] Pulse Oximetry 95 99 99 Oxygen Delivery Me thod Oxygen Flow Rate 04/23/25 10:45 04/23/25 10:46 04/23/25 11:00 Temperature Pulse Rate 113 H 114 H 115 H Pulse Rate [Pulse Oximeter] Respiratory Rate 14 13 15 Blood Pressure 108/80 Blood Pressure [Ri ght Upper Arm] Pulse Oximetry 98 98 99 Oxygen Delivery Me thod Room Air Oxygen Flow Rate 04/23/25 11:01 04/23/25 11:01 04/23/25 11:07 Temperature 97.9 F Pulse Rate 114 H 114 H 114 H Pulse Rate [Pulse Oximeter] Respiratory Rate 18 18 18 Blood Pressure 116/77 116/77 109/79 Blood Pressure [Ri ght Upper Arm] Pulse Oximetry 98 98 98 Oxygen Delivery Me thod Room Air Oxygen Flow Rate 04/23/25 11:11 04/23/25 11:15 04/23/25 11:16 Temperature Pulse Rate 115 H 114 H 116 H Pulse Rate [Pulse Oximeter] Respiratory Rate 12 20 19 Blood Pressure 109/79 106/84 Blood Pressure [Ri ght Upper Arm] Pulse Oximetry 98 98 98 Oxygen Delivery Me thod Oxygen Flow Rate 04/23/25 11:23 04/23/25 11:23 04/23/25 14:15 Temperature 98 F 98.9 F Pulse Rate 117 H 117 H 111 H Pulse Rate [Pulse Oximeter] Respiratory Rate 16 18 16 Blood Pressure 118/78 118/78 129/87 Blood Pressure [Ri ght Upper Arm] Pulse Oximetry 98 98 98 Oxygen Delivery Me thod Room Air Nasal Cannula Oxygen Flow Rate 1 Hospitalist - H&P: Result Labs Labs: Short CBC 04/23/25 04/23/25 04/23/25 Range/Units 08:30 13:06 13:06 WBC 11.11 H 11.48 H Cancelled (4.50-11.00) K/uL Hgb 7.9 L* 8.2 L (13.5-17.5) gm/dL Hct 22.9 L (37.0-53.0) % Plt Count 251 (140-440) K/uL 04/23/25 04/23/25 04/23/25 Range/Units 13:06 13:06 13:06 WBC (4.50-11.00) K/uL Hgb Cancelled (13.5-17.5) gm/dL Hct 24.0 L Cancelled (37.0-53.0) % Plt Count 233 Cancelled (140-440) K/uL BMP 04/23/25 04/23/25 04/23/25 08:30 13:06 13:06 Sodium 138 138 Cancelled Potassium 3.8 4.3 Chloride 106 Carbon Dioxide 26 BUN 62 H Creatinine 0.9 Glucose 139 H Calcium 8.9 04/23/25 04/23/25 04/23/25 13:06 13:06 13:06 Sodium Potassium Cancelled Chloride 108 Cancelled Carbon Dioxide 26 Cancelled BUN 59 H Creatinine Glucose Calcium 04/23/25 04/23/25 04/23/25 13:06 13:06 13:06 Sodium Potassium Chloride Carbon Dioxide BUN Cancelled Creatinine 0.9 Cancelled Glucose 141 H Cancelled Calcium 8.7 04/23/25 13:06 Sodium Potassium Chloride Carbon Dioxide BUN Creatinine Glucose Calcium Cancelled Cardiac Enzymes 04/23/25 04/23/25 04/23/25 Range/Units 08:30 13:06 13:06 Troponin I 0.09 H* 0.12 H* Cancelled (0.01-0.04) ng/mL Liver Function 04/23/25 04/23/25 04/23/25 Range/Units 08:30 13:06 13:06 Total Bilirubin 0.2 0.3 Cancelled (0.1-1.5) mg/dL Direct Bilirubin 0.0 (0.0-0.5) mg/dL AST 29 30 (12-35) U/L ALT 21 (4-50) U/L Alkaline Phosphatase 71 (40-150) U/L Albumin 3.3 (3.3-5.0) g/dL 04/23/25 04/23/25 04/23/25 Range/Units 13:06 13:06 13:06 Total Bilirubin (0.1-1.5) mg/dL Direct Bilirubin (0.0-0.5) mg/dL AST Cancelled (12-35) U/L ALT 21 Cancelled (4-50) U/L Alkaline Phosphatase 67 Cancelled (40-150) U/L Albumin 3.2 L (3.3-5.0) g/dL 04/23/25 Range/Units 13:06 Total Bilirubin (0.1-1.5) mg/dL Direct Bilirubin (0.0-0.5) mg/dL AST (12-35) U/L ALT (4-50) U/L Alkaline Phosphatase (40-150) U/L Albumin Cancelled (3.3-5.0) g/dL ECG Attestation: I personally reviewed and interpreted this ECG as follows: ECG interpretation date: 04/23/25 Interpretation: Sinus tachycardia, RBBB, bifascicular block
[2025-04-23 15:21] LABS: Lactate Sepsis 2 Hour 2.7 mmol/L (0.5-1.9)
--- NOTE | 2025-04-23 16:20 | PM.DS1 ---
DS: Providers Provider Date Seen: 04/23/25 Date of admission: 04/23/25 14:41 Primary care physician: Not a Local Provider Admitting Clinician: Lizeth Steen MD Attending Physician on discharge: Neeta Armijo [facility], [facility] [place] [facility] Date of Discharge: 04/23/25 DS: Diagnosis Discharge Diagnosis (1) Wide-complex tachycardia: Status: Acute Problem details: 7 minute run of wide complex tachycardia Symptomatic - diaphoretic, generalized weakness. Without complaint of chest pain, tightness, dyspnea Resolved without intervention, spontaneously returning to sinus tachycardia, EKG similar to previous. Symptoms resolved Repeat lab stable. Lactate mildly elevated Plan to transfer- [facility] has been contacted, [facility] to review, awaiting acceptance Acuity is characterized as high and reflected in: H/o prosthetic valve, chronic anticoagulation, blood loss anemia, rapid response for wide complex tachycardia This patient will require hospital services as outlined in the assessment and plan in order to stabilize and be safely discharged to a lower level of care. Because of the risk and acuity as described above, this patient cannot be managed at a lower level of care. (2) GI (gastrointestinal bleed): Status: Acute Problem details: 8 bloody stools since 6:30 p.m. 04/22 Bright red blood On anticoagulation - holding Hemoglobin 7.9 ->8.2 Receiving 2 units packed red blood cells. Repeat hemoglobin after 2nd unit. Reports previous blood transfusions without adverse reactions ED provider discussed with General surgery, initial plan was for reassessment for scope tomorrow. Given code event requiring CCU level care, patient will be transferred. 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 Normalized in sinus tachycardia Continue IVF Hold home meds (7) Elevated troponin: Status: Acute Problem details: Troponin 0.09 -> 0.12 following episode of wide complex tachycardia, EKG unchanged, suspected to be ischemic [facility] to review DS: Summary Hospital Course Hospital Course: Course of care and details as noted above. 74 yom significant cardiac history, on anticoagulation, with significant GI bleed. Rapid response called for tachycardia and hypotension in setting of volume loss. Transferred to [facility] for further management. Remainder of chronic medical comorbidities were monitored and managed with home medications. Status at Discharge Overall status at discharge: patient is not back to baseline Time Spent with Patient Time attestation: Total time spent providing and/or coordinating discharge services: Time spent: Greater than 30 minutes Exam Narrative: Exam Narrative: PHYSICAL EXAM General: Currently NAD, stable Cardiovascular: Mildly tachycardic Pulmonary: No dyspnea Neurological: Alert, answering questions appropriately Skin: Warm, dry. Const: Vital Signs, click to edit/add: Vital Signs - 24 hr 04/23/25 08:14 04/23/25 08:40 04/23/25 09:40 Temperature 97.8 F Pulse Rate 107 H Pulse Rate [Pulse Oximeter] 99 Pulse Rate [Right Pulse Oximeter] Respiratory Rate 18 12 Blood Pressure Blood Pressure [Ri ght Arm] Blood Pressure [Ri ght Upper Arm] 150/82 H Pulse Oximetry 99 96 100 Oxygen Delivery Me thod Room Air Room Air Oxygen Flow Rate 04/23/25 09:45 04/23/25 09:46 04/23/25 09:47 Temperature Pulse Rate 106 H 103 H 104 H Pulse Rate [Pulse Oximeter] Pulse Rate [Right Pulse Oximeter] Respiratory Rate 15 11 L 18 Blood Pressure 122/86 Blood Pressure [Ri ght Arm] Blood Pressure [Ri ght Upper Arm] Pulse Oximetry 98 99 99 Oxygen Delivery Me thod Oxygen Flow Rate 04/23/25 10:00 04/23/25 10:01 04/23/25 10:15 Temperature Pulse Rate 105 H 104 H 121 H Pulse Rate [Pulse Oximeter] Pulse Rate [Right Pulse Oximeter] Respiratory Rate 13 16 19 Blood Pressure 113/87 Blood Pressure [Ri ght Arm] Blood Pressure [Ri ght Upper Arm] Pulse Oximetry 97 99 96 Oxygen Delivery Me thod Room Air Oxygen Flow Rate 04/23/25 10:16 04/23/25 10:30 04/23/25 10:31 Temperature Pulse Rate 111 H 110 H 110 H Pulse Rate [Pulse Oximeter] Pulse Rate [Right Pulse Oximeter] Respiratory Rate 16 18 10 L Blood Pressure 116/85 114/84 Blood Pressure [Ri ght Arm] Blood Pressure [Ri ght Upper Arm] Pulse Oximetry 95 99 99 Oxygen Delivery Me thod Oxygen Flow Rate 04/23/25 10:45 04/23/25 10:46 04/23/25 11:00 Temperature Pulse Rate 113 H 114 H 115 H Pulse Rate [Pulse Oximeter] Pulse Rate [Right Pulse Oximeter] Respiratory Rate 14 13 15 Blood Pressure 108/80 Blood Pressure [Ri ght Arm] Blood Pressure [Ri ght Upper Arm] Pulse Oximetry 98 98 99 Oxygen Delivery Me thod Room Air Oxygen Flow Rate 04/23/25 11:01 04/23/25 11:01 04/23/25 11:07 Temperature 97.9 F Pulse Rate 114 H 114 H 114 H Pulse Rate [Pulse Oximeter] Pulse Rate [Right Pulse Oximeter] Respiratory Rate 18 18 18 Blood Pressure 116/77 116/77 109/79 Blood Pressure [Ri ght Arm] Blood Pressure [Ri ght Upper Arm] Pulse Oximetry 98 98 98 Oxygen Delivery Me thod Room Air Oxygen Flow Rate 04/23/25 11:11 04/23/25 11:15 04/23/25 11:16 Temperature Pulse Rate 115 H 114 H 116 H Pulse Rate [Pulse Oximeter] Pulse Rate [Right Pulse Oximeter] Respiratory Rate 12 20 19 Blood Pressure 109/79 106/84 Blood Pressure [Ri ght Arm] Blood Pressure [Ri ght Upper Arm] Pulse Oximetry 98 98 98 Oxygen Delivery Me thod Oxygen Flow Rate 04/23/25 11:23 04/23/25 11:23 04/23/25 11:55 Temperature 98 F 98.5 F Pulse Rate 117 H 117 H 111 H Pulse Rate [Pulse Oximeter] Pulse Rate [Right Pulse Oximeter] Respiratory Rate 16 18 18 Blood Pressure 118/78 118/78 122/87 Blood Pressure [Ri ght Arm] Blood Pressure [Ri ght Upper Arm] Pulse Oximetry 98 98 98 Oxygen Delivery Me thod Room Air Room Air Oxygen Flow Rate 04/23/25 12:06 04/23/25 12:06 04/23/25 12:28 Temperature 98.5 F Pulse Rate 119 H Pulse Rate [Pulse Oximeter] Pulse Rate [Right Pulse Oximeter] 113 H Respiratory Rate 18 Blood Pressure 111/85 Blood Pressure [Ri ght Arm] 122/87 Blood Pressure [Ri ght Upper Arm] Pulse Oximetry 98 98 87 L Oxygen Delivery Me thod Room Air Room Air Room Air Oxygen Flow Rate 04/23/25 12:44 04/23/25 12:45 04/23/25 12:53 Temperature Pulse Rate 227 H 231 H Pulse Rate [Pulse Oximeter] Pulse Rate [Right Pulse Oximeter] Respiratory Rate Blood Pressure 63/34 L 106/73 101/78 Blood Pressure [Ri ght Arm] Blood Pressure [Ri ght Upper Arm] Pulse Oximetry 99 98 Oxygen Delivery Me thod Oxygen Flow Rate 04/23/25 12:58 04/23/25 13:00 04/23/25 13:03 Temperature Pulse Rate 112 H Pulse Rate [Pulse Oximeter] Pulse Rate [Right Pulse Oximeter] Respiratory Rate Blood Pressure 106/73 122/83 108/76 Blood Pressure [Ri ght Arm] Blood Pressure [Ri ght Upper Arm] Pulse Oximetry 98 Oxygen Delivery Me thod Nasal Cannula Oxygen Flow Rate 1 04/23/25 13:15 04/23/25 14:15 Temperature 98.9 F Pulse Rate 107 H 111 H Pulse Rate [Pulse Oximeter] Pulse Rate [Right Pulse Oximeter] Respiratory Rate 16 Blood Pressure 125/84 129/87 Blood Pressure [Ri ght Arm] Blood Pressure [Ri ght Upper Arm] Pulse Oximetry 100 98 Oxygen Delivery Me thod Nasal Cannula Oxygen Flow Rate 1 DS: Data Data Completed and Pending Labs on day of discharge: Labs from last 24 hours 04/23/25 04/23/25 04/23/25 15:06 13:06 13:06 WBC Corrected WBC RBC Hgb Hct MCV MCH MCHC RDW Coeff of Cindy Plt Count Neut % (Auto) Lymph % (Auto) [place] % (Auto) Eos % (Auto) Baso % (Auto) Neut # (Auto) Lymph # (Auto) [place] # (Auto) Eos # (Auto) Baso # (Auto) Abs Immat Gran (auto) Imm/Tot Granulo (auto) INR Sodium Potassium Chloride Carbon Dioxide Anion Gap BUN Creatinine Estimated Creat Clear Estimated GFR Glucose Lactate 2.7 H Calcium Total Bilirubin Direct Bilirubin AST ALT Alkaline Phosphatase Troponin I Total Protein Cancelled Albumin Cancelled 3.2 L Stool Occult Blood Stl C. diff Tox B Gene Stl C. diff 027-NAP1-BI POC Troponin I Blood Type Antibody Screen Crossmatch ([facility]) 04/23/25 04/23/25 04/23/25 13:06 13:06 13:06 WBC Corrected WBC RBC Hgb Hct MCV MCH MCHC RDW Coeff of Cindy Plt Count Neut % (Auto) Lymph % (Auto) [place] % (Auto) Eos % (Auto) Baso % (Auto) Neut # (Auto) Lymph # (Auto) [place] # (Auto) Eos # (Auto) Baso # (Auto) Abs Immat Gran (auto) Imm/Tot Granulo (auto) INR Sodium Potassium Chloride Carbon Dioxide Anion Gap BUN Creatinine Estimated Creat Clear Estimated GFR Glucose Lactate Calcium Total Bilirubin Direct Bilirubin AST ALT Cancelled Alkaline Phosphatase Cancelled 67 Troponin I Cancelled 0.12 H* Total Protein 5.3 L Albumin Stool Occult Blood Stl C. diff Tox B Gene Stl C. diff 027-NAP1-BI POC Troponin I Blood Type Antibody Screen Crossmatch ([facility]) 04/23/25 04/23/25 04/23/25 13:06 13:06 13:06 WBC Corrected WBC RBC Hgb Hct MCV MCH MCHC RDW Coeff of Cindy Plt Count Neut % (Auto) Lymph % (Auto) [place] % (Auto) Eos % (Auto) Baso % (Auto) Neut # (Auto) Lymph # (Auto) [place] # (Auto) Eos # (Auto) Baso # (Auto) Abs Immat Gran (auto) Imm/Tot Granulo (auto) INR Sodium Potassium Chloride Carbon Dioxide Anion Gap BUN Creatinine Estimated Creat Clear Estimated GFR Glucose Lactate Calcium Cancelled Total Bilirubin Cancelled 0.3 Direct Bilirubin AST Cancelled 30 ALT 21 Alkaline Phosphatase Troponin I Total Protein Albumin Stool Occult Blood Stl C. diff Tox B Gene Stl C. diff 027-NAP1-BI POC Troponin I Blood Type Antibody Screen Crossmatch ([facility]) 04/23/25 04/23/25 04/23/25 13:06 13:06 13:06 WBC Corrected WBC RBC Hgb Hct MCV MCH MCHC RDW Coeff of Cindy Plt Count Neut % (Auto) Lymph % (Auto) [place] % (Auto) Eos % (Auto) Baso % (Auto) Neut # (Auto) Lymph # (Auto) [place] # (Auto) Eos # (Auto) Baso # (Auto) Abs Immat Gran (auto) Imm/Tot Granulo (auto) INR Sodium Potassium Chloride Carbon Dioxide Anion Gap BUN Creatinine Estimated Creat Clear Estimated GFR Cancelled Glucose Cancelled 141 H Lactate Cancelled 2.8 H Calcium 8.7 Total Bilirubin Direct Bilirubin AST ALT Alkaline Phosphatase Troponin I Total Protein Albumin Stool Occult Blood Stl C. diff Tox B Gene Stl C. diff 027-NAP1-BI POC Troponin I Blood Type Antibody Screen Crossmatch ([facility]) 04/23/25 04/23/25 04/23/25 13:06 13:06 13:06 WBC Corrected WBC RBC Hgb Hct MCV MCH MCHC RDW Coeff of Cindy Plt Count Neut % (Auto) Lymph % (Auto) [place] % (Auto) Eos % (Auto) Baso % (Auto) Neut # (Auto) Lymph # (Auto) [place] # (Auto) Eos # (Auto) Baso # (Auto) Abs Immat Gran (auto) Imm/Tot Granulo (auto) INR Sodium Potassium Chloride Carbon Dioxide Anion Gap BUN Cancelled Creatinine Cancelled 0.9 Estimated Creat Clear Cancelled 66.53 Estimated GFR 89 Glucose Lactate Calcium Total Bilirubin Direct Bilirubin AST ALT Alkaline Phosphatase Troponin I Total Protein Albumin Stool Occult Blood Stl C. diff Tox B Gene Stl C. diff 027-NAP1-BI POC Troponin I Blood Type Antibody Screen Crossmatch ([facility]) 04/23/25 04/23/25 04/23/25 13:06 13:06 13:06 WBC Corrected WBC RBC Hgb Hct MCV MCH MCHC RDW Coeff of Cindy Plt Count Neut % (Auto) Lymph % (Auto) [place] % (Auto) Eos % (Auto) Baso % (Auto) Neut # (Auto) Lymph # (Auto) [place] # (Auto) Eos # (Auto) Baso # (Auto) Abs Immat Gran (auto) Imm/Tot Granulo (auto) INR Sodium Potassium Chloride Cancelled Carbon Dioxide Cancelled 26 Anion Gap Cancelled 4 L BUN 59 H Creatinine Estimated Creat Clear Estimated GFR Glucose Lactate Calcium Total Bilirubin Direct Bilirubin AST ALT Alkaline Phosphatase Troponin I Total Protein Albumin Stool Occult Blood Stl C. diff Tox B Gene Stl C. diff 027-NAP1-BI POC Troponin I Blood Type Antibody Screen Crossmatch ([facility]) 04/23/25 04/23/25 04/23/25 13:06 13:06 13:06 WBC Corrected WBC RBC Hgb Hct MCV MCH MCHC RDW Coeff of Icndy Plt Count Neut % (Auto) Lymph % (Auto) [place] % (Auto) Eos % (Auto) Baso % (Auto) Neut # (Auto) Lymph # (Auto) [place] # (Auto) Eos # (Auto) Baso # (Auto) Abs Immat Gran (auto) Imm/Tot Granulo (auto) INR Cancelled Sodium Cancelled 138 Potassium Cancelled 4.3 Chloride 108 Carbon Dioxide Anion Gap BUN Creatinine Estimated Creat Clear Estimated GFR Glucose Lactate Calcium Total Bilirubin Direct Bilirubin AST ALT Alkaline Phosphatase Troponin I Total Protein Albumin Stool Occult Blood Stl C. diff Tox B Gene Stl C. diff 027-NAP1-BI POC Troponin I Blood Type Antibody Screen Crossmatch ([facility]) 04/23/25 04/23/25 04/23/25 13:06 13:06 13:06 WBC Corrected WBC RBC Hgb Hct MCV MCH MCHC RDW Coeff of Cindy Plt Count Neut % (Auto) Lymph % (Auto) [place] % (Auto) Eos % (Auto) Baso % (Auto) Neut # (Auto) Lymph # (Auto) [place] # (Auto) Eos # (Auto) Baso # (Auto) Cancelled Abs Immat Gran (auto) Cancelled 0.10 Imm/Tot Granulo (auto) Cancelled 0.7 INR 2.64 H Sodium Potassium Chloride Carbon Dioxide Anion Gap BUN Creatinine Estimated Creat Clear Estimated GFR Glucose Lactate Calcium Total Bilirubin Direct Bilirubin AST ALT Alkaline Phosphatase Troponin I Total Protein Albumin Stool Occult Blood Stl C. diff Tox B Gene Stl C. diff 027-NAP1-BI POC Troponin I Blood Type Antibody Screen Crossmatch ([facility]) 04/23/25 04/23/25 04/23/25 13:06 13:06 13:06 WBC Corrected WBC RBC Hgb Hct MCV MCH MCHC RDW Coeff of Cindy Plt Count Neut % (Auto) Lymph % (Auto) [place] % (Auto) Eos % (Auto) Baso % (Auto) Neut # (Auto) Lymph # (Auto) Cancelled [place] # (Auto) Cancelled 0.80 Eos # (Auto) Cancelled 0.00 Baso # (Auto) 0.00 Abs Immat Gran (auto) Imm/Tot Granulo (auto) INR Sodium Potassium Chloride Carbon Dioxide Anion Gap BUN Creatinine Estimated Creat Clear Estimated GFR Glucose Lactate Calcium Total Bilirubin Direct Bilirubin AST ALT Alkaline Phosphatase Troponin I Total Protein Albumin Stool Occult Blood Stl C. diff Tox B Gene Stl C. diff 027-NAP1-BI POC Troponin I Blood Type Antibody Screen Crossmatch ([facility]) 04/23/25 04/23/25 04/23/25 13:06 13:06 13:06 WBC Corrected WBC RBC Hgb Hct MCV MCH MCHC RDW Coeff of Cindy Plt Count Neut % (Auto) Lymph % (Auto) [place] % (Auto) Eos % (Auto) Cancelled Baso % (Auto) Cancelled 0.2 Neut # (Auto) Cancelled 9.20 H Lymph # (Auto) 1.30 [place] # (Auto) Eos # (Auto) Baso # (Auto) Abs Immat Gran (auto) Imm/Tot Granulo (auto) INR Sodium Potassium Chloride Carbon Dioxide Anion Gap BUN Creatinine Estimated Creat Clear Estimated GFR Glucose Lactate Calcium Total Bilirubin Direct Bilirubin AST ALT Alkaline Phosphatase Troponin I Total Protein Albumin Stool Occult Blood Stl C. diff Tox B Gene Stl C. diff 027-NAP1- POC Troponin I Blood Type Antibody Screen Crossmatch ([facility]) 04/23/25 04/23/25 04/23/25 13:06 13:06 13:06 WBC Corrected WBC RBC Hgb Hct MCV MCH MCHC RDW Coeff of Cindy Plt Count Neut % (Auto) Cancelled Lymph % (Auto) Cancelled 11.3 L [place] % (Auto) Cancelled 7.3 Eos % (Auto) 0.1 Baso % (Auto) Neut # (Auto) Lymph # (Auto) [place] # (Auto) Eos # (Auto) Baso # (Auto) Abs Immat Gran (auto) Imm/Tot Granulo (auto) INR Sodium Potassium Chloride Carbon Dioxide Anion Gap BUN Creatinine Estimated Creat Clear Estimated GFR Glucose Lactate Calcium Total Bilirubin Direct Bilirubin AST ALT Alkaline Phosphatase Troponin I Total Protein Albumin Stool Occult Blood Stl C. diff Tox B Gene Stl C. diff 027-NAP1-BI POC Troponin I Blood Type Antibody Screen Crossmatch ([facility]) 04/23/25 04/23/25 04/23/25 13:06 13:06 13:06 WBC Corrected WBC RBC Hgb Hct MCV MCH MCHC Cancelled RDW Coeff of Cindy Cancelled 15.1 Plt Count Cancelled 233 Neut % (Auto) 80.4 H Lymph % (Auto) [place] % (Auto) Eos % (Auto) Baso % (Auto) Neut # (Auto) Lymph # (Auto) [place] # (Auto) Eos # (Auto) Baso # (Auto) Abs Immat Gran (auto) Imm/Tot Granulo (auto) INR Sodium Potassium Chloride Carbon Dioxide Anion Gap BUN Creatinine Estimated Creat Clear Estimated GFR Glucose Lactate Calcium Total Bilirubin Direct Bilirubin AST ALT Alkaline Phosphatase Troponin I Total Protein Albumin Stool Occult Blood Stl C. diff Tox B Gene Stl C. diff 027-NAP1-BI POC Troponin I Blood Type Antibody Screen Crossmatch ([facility]) 04/23/25 04/23/25 04/23/25 13:06 13:06 13:06 WBC Corrected WBC RBC Hgb Hct Cancelled MCV Cancelled 89 MCH Cancelled 31 MCHC 34 RDW Coeff of Cindy Plt Count Neut % (Auto) Lymph % (Auto) [place] % (Auto) Eos % (Auto) Baso % (Auto) Neut # (Auto) Lymph # (Auto) [place] # (Auto) Eos # (Auto) Baso # (Auto) Abs Immat Gran (auto) Imm/Tot Granulo (auto) INR Sodium Potassium Chloride Carbon Dioxide Anion Gap BUN Creatinine Estimated Creat Clear Estimated GFR Glucose Lactate Calcium Total Bilirubin Direct Bilirubin AST ALT Alkaline Phosphatase Troponin I Total Protein Albumin Stool Occult Blood Stl C. diff Tox B Gene Stl C. diff 027-NAP1-BI POC Troponin I Blood Type Antibody Screen Crossmatch ([facility]) 04/23/25 04/23/25 04/23/25 13:06 13:06 13:06 WBC Cancelled Corrected WBC Cancelled RBC Cancelled 2.69 L Hgb Cancelled 8.2 L Hct 24.0 L MCV MCH MCHC RDW Coeff of Cindy Plt Count Neut % (Auto) Lymph % (Auto) [place] % (Auto) Eos % (Auto) Baso % (Auto) Neut # (Auto) Lymph # (Auto) [place] # (Auto) Eos # (Auto) Baso # (Auto) Abs Immat Gran (auto) Imm/Tot Granulo (auto) INR Sodium Potassium Chloride Carbon Dioxide Anion Gap BUN Creatinine Estimated Creat Clear Estimated GFR Glucose Lactate Calcium Total Bilirubin Direct Bilirubin AST ALT Alkaline Phosphatase Troponin I Total Protein Albumin Stool Occult Blood Stl C. diff Tox B Gene Stl C. diff 027-NAP1-BI POC Troponin I Blood Type Antibody Screen Crossmatch ([facility]) 04/23/25 04/23/25 04/23/25 13:06 08:41 08:30 WBC 11.48 H 11.11 H Corrected WBC RBC 2.54 L Hgb 7.9 L* Hct 22.9 L MCV 90 MCH 31 MCHC 35 RDW Coeff of Cindy 15.4 Plt Count 251 Neut % (Auto) 81.7 H Lymph % (Auto) 10.5 L [place] % (Auto) 6.7 Eos % (Auto) 0.1 Baso % (Auto) 0.3 Neut # (Auto) 9.10 H Lymph # (Auto) 1.20 [place] # (Auto) 0.70 Eos # (Auto) 0.00 Baso # (Auto) 0.00 Abs Immat Gran (auto) 0.10 Imm/Tot Granulo (auto) 0.7 INR 2.79 H Sodium 138 Potassium 3.8 Chloride 106 Carbon Dioxide 26 Anion Gap 6 L BUN 62 H Creatinine 0.9 Estimated Creat Clear 66.53 Estimated GFR 89 Glucose 139 H Lactate 2.5 H Calcium 8.9 Total Bilirubin 0.2 Direct Bilirubin 0.0 AST 29 ALT 21 Alkaline Phosphatase 71 Troponin I 0.09 H* Total Protein 5.4 L Albumin 3.3 Stool Occult Blood Pending Stl C. diff Tox B Gene Pending Stl C. diff 027-NAP1-BI Pending POC Troponin I Pending Blood Type O Negative Antibody Screen NEGATIVE Crossmatch ([facility]) See Detail Discharge Plan Discharge Disposition: [facility] Date of Admission: 04/23/25 14:41 Primary Care Provider: Provider,Not a Local Condition: Stable Discharge Orders: Transfer of Care to Other Hospital (ORDER); Ordered 04/23/25 Ordered By: Earlene Valencia Oxygen: Yes Oxygen Delivery Method: Nasal Cannula Oxygen Flow Rate: 1L Urinary Catheter: No Drips/Lines: peripheral IVs Services not available here: ICU, Cardiology, GI
[2025-04-23] MEDS: LACTATED RINGERS 1000 ML 1,000 ML 125 ML IV (17:23)
[2025-04-23 18:26] LABS: Lactate* 1.9 mmol/L (0.5-1.9)
--- NOTE | 2025-04-23 19:05 | PC.NURSE ---
Nursing Care Hours: [id number] Pt arrived to the floor alert and oriented, c/o dizziness. VSS on admission on RA. First unit of blood transfusing from ED, Q30min continued on floor During assessment, hands and feet cool to touch, central core warm. During admission intake, pt c/o nausea, relieved by cool wash cloth. Shortly after, pt c/o not feeling good and tele alerting HR of >200bpm. Confirmed with auscultation of heart. Pt became diaphoretic during episode. BP monitored Q5min with hypotension. Pt laid flat. Instructed pt to blow into empty syringe x2 and then bear down x2. While getting adenosine ready, pt self converted into sinus tach <120bpm. BP began to elevate. Continued to monitor BP and moved intervals up to Q30 while infusing the rest of the 2 units of PRB. Vitals remained stable since cardiac episode. Tele showing NSR by end of shift. 18g IV placed to R AC. Pt tolerating ice chips and no BM since admission. Urinating WNL.
[2025-04-23] MEDS: PHYTONADIONE (VIT K1) 5 MG in 0.9 % SODIUM CHLORIDE 50 ml 50 ML 100 MG IVPB (20:01)
[2025-04-23 20:09] LABS: Magnesium* 1.7 mg/dL (1.5-2.6)
--- NOTE | 2025-04-23 22:36 | PC.NURSE ---
Pt was transferred to [facility] ICU at [facility] at approximately 2106 this evening. VS prior to discharge: B/P 119/91, P 109, R 18, T 98.5, O2 98% on 1 LPM via NC. Pt reported mild pain to R upper abd stating, I think I popped a rib playing golf yesterday though declined PRN medications when discussed and did accept ice pack for this. This c/o pain was verbalized to MAULIK Garcia with [facility] during nurse to nurse report which was given prior to pt discharge. Tele in place prior to discharge with sinus tachycardia noted. All pt belongings removed from room with pt belongings form signed by . Pt's and son were at bedside prior to pt's discharge. He had received all medications per MD orders and had no c/o chest pain and no diaphoresis noted prior to discharge. Report was given to EMS and pt transferred via EMS transport. Pt voided twice in urinal prior to discharge.
[2025-04-24 08:58] LABS: Troponin, Point-of-Care* 0.07 ng/ml (0.01-0.04)
== END 2025-04-23 21:06 | disposition short-term general hospital (02) | DRG 378 ==
LOC: ED 09:49 → MEDSURG 11:40
PROVIDERS: Family Medicine; Admitting Provider Physician Assistant; Emergency Provider Family Medicine; Visit Provider Family Medicine
DX: K62.5 Hemorrhage of anus and rectum (principal); I47.29 Other ventricular tachycardia; I42.0 Dilated cardiomyopathy; I50.9 Heart failure, unspecified; I95.9 Hypotension, unspecified; R79.89 Other specified abnormal findings of blood chemistry; I11.0 Hypertensive heart disease with heart failure; R42 Dizziness and giddiness; I45.10 Unspecified right bundle-branch block; I44.4 Left anterior fascicular block; R41.89 Other symptoms and signs involving cognitive functions and awareness; I25.10 Atherosclerotic heart disease of native coronary artery without angina pectoris; G47.33 Obstructive sleep apnea (adult) (pediatric); Z79.01 Long term (current) use of anticoagulants; Z79.82 Long term (current) use of aspirin; Z95.1 Presence of aortocoronary bypass graft; Z95.2 Presence of prosthetic heart valve; Z86.73 Personal history of transient ischemic attack (TIA), and cerebral infarction without residual deficits; E03.9 Hypothyroidism, unspecified; E78.5 Hyperlipidemia, unspecified
CPT/HCPCS: 36415; 36430; 80048; 80053; 80076; 82270; 83605; 83735; 84484; 85018; 85025; 85610; 86850; 86900; 86901; 86922; 87493; 93005; 94761; 99285; J3430; J7030; J7120; P9016

== ENCOUNTER 2025-04-23 20:52 | Outpatient (CLI) | payer MEDICARE, BC, SELFPAY | END 2025-04-23 20:53 | disposition home or self-care (01) | PROVIDERS: Visit Provider Emergency Medicine | DX: R00.0 Tachycardia, unspecified (principal); K92.2 Gastrointestinal hemorrhage, unspecified; Z79.01 Long term (current) use of anticoagulants | CPT/HCPCS: A0425; A0433 ==